=== PATIENT | female | born 2000 | race Hispanic/Latino ===

== ENCOUNTER 2021-10-19 00:52 | Day surgery (SDC) | payer SELFPAY ==
[2021-10-19] MEDS ORDERED: hydrALAZINE 20 MG/ML VIAL SLOW IVP PRN (02:12)
[2021-10-19 02:17] VITALS: BMI 39.9
[2021-10-19 02:43] LABS: Fetal Membranes Rupture No Membranes Rupture (No Rupture)
[2021-10-19] MEDS ORDERED: Acetaminophen 325 MG TAB PO PRN (02:43)
[2021-10-19 15:11] LABS: Chlamydia by PCR Not Detected (NotDetected); GC by PCR Not Detected (NotDetected)
== END 2021-10-19 05:50 | disposition home or self-care (01) ==
LOC: CSHLD/OP 00:52
PROVIDERS: ATTEND Obstetrics & Gynecology
DX: O99.891 Other specified diseases and conditions complicating pregnancy (principal); R10.30 Lower abdominal pain, unspecified; O98.813 Other maternal infectious and parasitic diseases complicating pregnancy, third trimester; B37.49 Other urogenital candidiasis; O23.593 Infection of other part of genital tract in pregnancy, third trimester; B96.89 Other specified bacterial agents as the cause of diseases classified elsewhere; O09.33 Supervision of pregnancy with insufficient antenatal care, third trimester; Z3A.30 30 weeks gestation of pregnancy
CPT/HCPCS: 84112; 87480; 87491; 87510; 87591; 87660

== ENCOUNTER 2021-11-24 12:13 | Day surgery (SDC) | payer SELFPAY ==
[2021-11-24] MEDS ORDERED: hydrALAZINE 20 MG/ML VIAL SLOW IVP PRN (12:48)
[2021-11-24 12:59] VITALS: BMI 36.1
== END 2021-11-24 14:29 | disposition home or self-care (01) ==
LOC: CSHLD/OP 12:13
PROVIDERS: ATTEND Family Medicine
DX: O36.8130 Decreased fetal movements, third trimester, not applicable or unspecified (principal); Z3A.35 35 weeks gestation of pregnancy; O23.593 Infection of other part of genital tract in pregnancy, third trimester; O98.813 Other maternal infectious and parasitic diseases complicating pregnancy, third trimester; B37.3 Candidiasis of vulva and vagina; B96.89 Other specified bacterial agents as the cause of diseases classified elsewhere; O99.891 Other specified diseases and conditions complicating pregnancy; T14.8XXA Other injury of unspecified body region, initial encounter
CPT/HCPCS: 76819; 87480; 87510; 87660; 99283

== ENCOUNTER 2021-12-15 18:08 | Day surgery (SDC) | payer SELFPAY ==
[2021-12-15] MEDS ORDERED: hydrALAZINE 20 MG/ML VIAL SLOW IVP PRN (18:20)
== END 2021-12-15 19:50 | disposition home or self-care (01) ==
LOC: CSHLD/OP 18:08
PROVIDERS: ATTEND Obstetrics & Gynecology
DX: O36.8130 Decreased fetal movements, third trimester, not applicable or unspecified (principal); Z3A.38 38 weeks gestation of pregnancy; Z87.19 Personal history of other diseases of the digestive system
CPT/HCPCS: 87081

== ENCOUNTER 2021-12-26 19:14 | Inpatient (IN) | payer MEDICAID, SELFPAY ==
[2021-12-26] MEDS ORDERED: hydrALAZINE 20 MG/ML VIAL SLOW IVP PRN (20:35)
[2021-12-26 21:02] LABS: Fetal Membranes Rupture No Membranes Rupture (No Rupture)
[2021-12-26] MEDS ORDERED: Acetaminophen 500 MG TAB PO PRN (21:54)
[2021-12-26] MEDS ORDERED: Promethazine HCl 25 MG/ML VIAL IM PRN (21:56)
[2021-12-26] MEDS ORDERED: Lactated Ringer's 1,000 ML IV SCH (22:00)
[2021-12-26 22:49] LABS: #Monocytes 0.6 10x3/uL (0.0-1.1); #Neutrophils 5.6 10x3/uL (1.5-8.4); %Basophils 0.3 % (0.0-2.0); %Eosinophils 0.1 % (0.0-6.0); %Monocytes 8.5 % (0.0-10.0); %Neutrophils 77.8 % (40.0-75.0); Hemoglobin 10.8 g/dL (12.0-15.5); Mean Corpuscular HGB CONC 34.3 g/dL (32.0-36.0); Mean Corpuscular Hemoglobin 28.6 pg (27.0-33.0); Mean Corpuscular Volume 83.6 fl (81.6-98.3); Mean Platelet Volume 11.8 fl (7.4-10.4); Platelet Count 200 10x3/uL (150-450); RBC Distribution Width 13.6 % (11.5-14.5); Red Blood Cell (RBC) Count 3.77 10x6/uL (3.90-5.03); White Blood Cell (WBC) Count 7.2 10x3/uL (3.5-10.5)
[2021-12-26 23:11] LABS: Syphilis Antibody Nonreactive (Nonreactive); Syphilis Antibody Index 0.04 S/CO (<1.00 Non-Reactive)
[2021-12-26 23:12] LABS: HBSAg Index 0.25 S/CO (0-0.99); Hep B Surf Ag Non-Reactive S/CO (NonReactive)
[2021-12-27 01:29] VITALS: BMI 36.3
[2021-12-27] MEDS ORDERED: Lidocaine 1% (PF) 30 ML VIAL SC PRN (03:37)
[2021-12-27] MEDS ORDERED: Ibuprofen 800 MG TAB PO PRN (03:37)
[2021-12-27] MEDS ORDERED: Ondansetron PF 4 MG/2 ML Vial IVP PRN ×2 (03:37→17:11)
[2021-12-27] MEDS ORDERED: Misoprostol 200 MCG TAB PR PRN (03:37)
[2021-12-27] MEDS ORDERED: NS w/ Oxytocin 30 units 500 ML IV SCH ×2 (04:00→12:45)
[2021-12-27] MEDS: Misoprostol 100 MCG TAB VAG SCH ×2 (04:48→08:27)
[2021-12-27 05:51] LABS: Hemoglobin 9.7 g/dL (12.0-15.5); Mean Corpuscular HGB CONC 33.4 g/dL (32.0-36.0); Mean Corpuscular Hemoglobin 28.3 pg (27.0-33.0); Mean Corpuscular Volume 84.5 fl (81.6-98.3); Platelet Count 177 10x3/uL (150-450); RBC Distribution Width 13.7 % (11.5-14.5); Red Blood Cell (RBC) Count 3.43 10x6/uL (3.90-5.03); White Blood Cell (WBC) Count 5.2 10x3/uL (3.5-10.5)
[2021-12-27 06:16] LABS: Amphetamine Not Detected (NotDetected); Barbiturates Screen Not Detected (NotDetected); Benzodiazepine Screen Not Detected (NotDetected); Cocaine Metabolite Screen Not Detected (NotDetected); Methadone Not Detected (NotDetected); Methamphetamine Not Detected (NotDetected); Opiate Screen Not Detected (NotDetected); Oxycodone Screen Not Detected (NotDetected); Phencyclidine (PCP) Not Detected (NotDetected); THC/Cannabinoid Screen Not Detected (NotDetected); Tricyclic Screen Not Detected (NotDetected)
[2021-12-27 06:17] LABS: HBSAg Index 0.32 S/CO (0-0.99); Hep B Surf Ag Non-Reactive S/CO (NonReactive); Syphilis Antibody Nonreactive (Nonreactive); Syphilis Antibody Index 0.05 S/CO (<1.00 Non-Reactive)
[2021-12-27 06:45] LABS: HIV (1/2) Antibody/Antigen Non-Reactive (NonReactive); HIV 1/2 INDEX 0.23 S/CO (<1.00)
[2021-12-27 07:15] LABS: SARS-CoV-2 NAA Rapid Test DETECTED (NotDetected)
[2021-12-27] MEDS: Lactated Ringer's 1,000 ML IV SCH ×3 (07:38→12:40)
[2021-12-27] MEDS ORDERED: Bupivacaine/Epinephrine 0.25% 30 ML VIAL ONE (08:00)
[2021-12-27] MEDS ORDERED: Misoprostol 100 MCG TAB PO SCH (11:45)
[2021-12-27] MEDS ORDERED: Fentanyl 2 mcg/Bup 0.1% Cadd 100 ML ONE (14:55)
[2021-12-27] MEDS ORDERED: Promethazine HCl 25 MG/ML VIAL IM PRN (17:11)
[2021-12-27] MEDS ORDERED: Moisturizing Cream (Eucerin) 113 GM JAR TOP PRN (17:11)
[2021-12-27] MEDS ORDERED: Naloxone HCl 0.4 mg/ml Vial IVP PRN ×2 (17:11)
[2021-12-27] MEDS ORDERED: ePHEDrine Sulfate 50 MG/10 ML VIAL SLOW IVP PRN (17:11)
[2021-12-27] MEDS ORDERED: Acetaminophen 325 MG TAB PO PRN (17:11)
[2021-12-27] MEDS ORDERED: diphenhydrAMINE 50 MG/ML VIAL IVP PRN (17:11)
[2021-12-27] MEDS ORDERED: Lactated Ringer's 500 ML IV PRN (17:11)
[2021-12-27] MEDS ORDERED: Fentanyl 2 mcg/Bupivacaine 0.1% Cassette 100 ML EPIDURAL SCH (17:15)
[2021-12-27] MEDS ORDERED: Communication Order-Pharmacy FS SCH (17:15)
[2021-12-27] MEDS ORDERED: Carboprost 250 MCG/ML AMP ONE (20:27)
[2021-12-27] MEDS ORDERED: Tranexamic Acid 1,000 MG/10 ML VIAL ONE (20:27)
[2021-12-27] MEDS ORDERED: Misoprostol 200 MCG TAB ONE (20:27)
[2021-12-27] MEDS ORDERED: Methylergonovine 0.2 MG/ML VIAL ONE (20:28)
[2021-12-27] MEDS ORDERED: Erythromycin Base 0.5% Oint 1 GM TUBE ONE (21:46)
[2021-12-27] MEDS ORDERED: Phytonadione Neonatal 1 MG/0.5 ML AMP ONE (21:46)
[2021-12-27] MEDS ORDERED: Hepatitis B Vaccine 10 MCG/0.5 ML SYR ONE (21:48)
[2021-12-28] MEDS ORDERED: Boostrix 0.5 ML (Tdap) VIAL (>/=7 yrs of age) IM ONE (00:20)
[2021-12-28] MEDS ORDERED: Promethazine HCl 25 MG/ML VIAL IM PRN (00:20)
[2021-12-28] MEDS ORDERED: Benzocaine-Menthol 82.5 ML CAN TOP PRN (00:20)
[2021-12-28] MEDS ORDERED: Preparation H Ointment 28 GM TUBE PR PRN (00:20)
[2021-12-28] MEDS ORDERED: Lanolin Ointment 7 GM TUBE TOP PRN (00:20)
[2021-12-28] MEDS ORDERED: Milk Of Magnesia 30 ML UDCUP PO PRN (00:20)
[2021-12-28] MEDS ORDERED: diphenhydrAMINE 25 MG CAP PO PRN (00:20)
[2021-12-28] MEDS ORDERED: HYDROcodone/Acetaminophen 5/325 mg Tablet PO PRN ×2 (00:20)
[2021-12-28] MEDS ORDERED: Zolpidem Tartrate 5 MG TAB PO PRN (00:20)
[2021-12-28] MEDS ORDERED: hydrALAZINE 20 MG/ML VIAL SLOW IVP PRN (00:20)
[2021-12-28] MEDS ORDERED: Bisacodyl 10 MG SUPP PR PRN (00:20)
[2021-12-28] MEDS ORDERED: Ondansetron PF 4 MG/2 ML Vial IVP PRN (00:20)
[2021-12-28] MEDS ORDERED: NS w/ Oxytocin 30 units 500 ML IV SCH (00:20)
[2021-12-28] MEDS: Ibuprofen 800 MG TAB PO SCH ×3 (06:37→22:05)
[2021-12-28] MEDS: Prenatal Vitamin 1 TAB PO SCH ×2 (09:33→09:41)
[2021-12-28] MEDS: Docusate 100 MG CAP PO SCH ×2 (09:41→22:05)
[2021-12-28] MEDS: Acetaminophen 325 MG TAB PO SCH (09:41)
[2021-12-29] MEDS: Ibuprofen 800 MG TAB PO SCH ×2 (05:42→14:17)
[2021-12-29] MEDS: Prenatal Vitamin 1 TAB PO SCH ×2 (08:53→13:11)
[2021-12-29] MEDS: Acetaminophen 325 MG TAB PO SCH (08:53)
[2021-12-29] MEDS: Docusate 100 MG CAP PO SCH (08:54)
[2021-12-29 09:16] VITALS: BP 103/53; TEMP 98
== END 2021-12-29 16:00 | disposition home or self-care (01) | DRG 805 ==
LOC: CSHLD/OP 19:14 → UNDOADMIN 12-27 03:52 → CSHLD 12-27 03:52 → CSHANTE 12-28
PROVIDERS: ADMIT Obstetrics & Gynecology; ATTEND Obstetrics & Gynecology
PROC: 10E0XZZ Delivery of Products of Conception, External Approach (ICD-10-PCS; principal; 2021-12-27)
PROC: 0KQM0ZZ Repair Perineum Muscle, Open Approach (ICD-10-PCS; 2021-12-27)
PROC: 3E0P7VZ Introduction of Hormone into Female Reproductive, Via Natural or Artificial Opening (ICD-10-PCS; 2021-12-27)
PROC: 8E0ZXY6 Isolation (ICD-10-PCS; 2021-12-27)
PROC: 3E033VJ Introduction of Other Hormone into Peripheral Vein, Percutaneous Approach (ICD-10-PCS; 2021-12-27)
DX: O42.02 Full-term premature rupture of membranes, onset of labor within 24 hours of rupture (principal); U07.1 COVID-19; Z37.0 Single live birth; O23.593 Infection of other part of genital tract in pregnancy, third trimester; O41.03X0 Oligohydramnios, third trimester, not applicable or unspecified; O98.813 Other maternal infectious and parasitic diseases complicating pregnancy, third trimester; O98.52 Other viral diseases complicating childbirth; Z3A.39 39 weeks gestation of pregnancy; N76.0 Acute vaginitis; B37.9 Candidiasis, unspecified; O70.1 Second degree perineal laceration during delivery; D50.0 Iron deficiency anemia secondary to blood loss (chronic); O90.81 Anemia of the puerperium
CPT/HCPCS: 36415; 51702; 76815; 80306; 84112; 85025; 85027; 86780; 86850; 86900; 86901; 87340; 87389; 87480; 87510; 87660; 99285; J2550; J2590; J7120; U0002